=== PATIENT | female | born 2005 | race Caucasian/White ===

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

== ENCOUNTER → 2024-07-25 | Outpatient (CLI) | payer OTHER ==
[2024-07-25 13:27] VITALS: BP 110/71; PULSE 80; RESP 16; TEMP 98.7
--- NOTE | 2024-07-25 20:52 | P.SLEEP ---
History of Present Illness H&P Date: 07/25/24 This is a 19-year-old female patient was referred to sleep center due to concerns of sleep apnea. The patient has loud snoring and she is suffering from excessive daytime sleepiness. Her current [place] score is at 2. She has been noted to stop breathing at night and occasionally, she wakes up choking and gasping for air. Her sleep is fragmented. She goes to bed between 10 PM and 2 AM and she gets out of bed between 6 and 8 AM in the morning. 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 She has attended [employer]. The patient has been diagnosed having PCOS and she has gained weight over the years and her current body mass index is 36.9. She also has history of acid reflux and chronic bronchial asthma for which she has been maintained on Symbicort. No grinding of the teeth. No sleepwalking or sleep talking. No nocturia. No restlessness in her lower extremities. No palpitations. No heartburn. She does feel tired at all times. No history of any motor vehicle accidents because of feeling drowsy or sleepy. She has lost her parents at the young age. Her father of a cardiac complication at the age of 37 and mother of complication of pulmonary disease at the age of 45. She is currently living alone. She does yoga and walks for exercise several days a week. No history of smoking. No alcoholism. No substance abuse. Review of Systems Constitutional: Reports daytime sleepiness, Reports fatigue, Reports weight gain Eyes: denies as per HPI, denies blurred vision, denies bulging eye, denies decreased vision, denies diplopia, denies discharge, denies dry eye, denies irritation, denies itching, denies pain, denies photophobia, denies loss of peripheral vision, denies loss of vision, denies tunnel vision/blind spots Ears: deny: decreased hearing, ear discharge, earache, tinnitus Ears, nose, mouth and throat: Reports as per HPI Breasts: absent: as per HPI, change in shape, gynecomastia, masses, nipple discharge, pain, skin changes, swelling Cardiovascular: Reports as per HPI Respiratory: Reports snoring Gastrointestinal: Reports as per HPI Genitourinary: Reports as per HPI Menstruation: Reports as per HPI, Reports cycle variable Musculoskeletal: Reports as per HPI Musculoskeletal: absent: ankle pain, ankle stiffness, ankle swelling, as per HPI, elbow pain, elbow stiffness, elbow swelling, foot pain, foot stiffness, foot swelling, hand pain, hand stiffness, hand swelling, hip pain, hip stiffness, hip swelling, knee pain, knee stiffness, knee swelling, shoulder pain, shoulder stiffness, shoulder swelling, wrist pain, wrist stiffness, wrist swelling Integumentary: Reports as per HPI Neurological: Reports as per HPI Psychiatric: Reports as per HPI Endocrine: Reports fatigue Hematologic/Lymphatic: Reports as per HPI Allergic/Immunologic: Reports as per HPI Past Medical History Past Medical History: Asthma, GERD/Reflux Additional Past Medical History / Comment(s): PCOS History of Any Multi-Drug Resistant Organisms: None Reported Past Surgical History: No Surgical Hx Reported Past Anesthesia/Blood Transfusion Reactions: No Reported Reaction Past Psychological History: No Psychological Hx Reported Smoking Status: Never smoker Past Alcohol Use History: None Reported Past Drug Use History: None Reported - Past Family History Mother Family Medical History: Asthma, Cancer, Pneumonia, Rheumatoid Arthritis (RA) Additional Family Medical History / Comment(s): Lundg problems, breast Cancer, in sleep, Insomnia, mental illness Father Family Medical History: Asthma, Coronary Artery Disease (CAD), Hyperlipidemia, Sleep Apnea/CPAP/BIPAP Additional Family Medical History / Comment(s): Mental Illness Medications and Allergies Home Medications Medication Instructions Recorded Confirmed Type Budesonide/Formoterol Fumarate See Rx Instructions .ROUTE .COMPLEX 07/25/24 07/25/24 History [Symbicort 80-4.5 Mcg Inhaler] Cholecalciferol (Vitamin D3) 50,000 units PO WEEKLY 07/25/24 07/25/24 History [Vitamin D3 (125 MCG = 5,000 IU)] Omeprazole 20 mg PO DAILY 07/25/24 07/25/24 History Ondansetron [Zofran] 4 mg PO Q12HR PRN 07/25/24 07/25/24 History norgestimate-ethinyl estradioL See Rx Instructions .ROUTE .COMPLEX 07/25/24 07/25/24 History [Sprintec 28 Day Tablet] Allergies Allergy/AdvReac Type Severity Reaction Status Date / Time No Known Allergies Allergy Verified 12/26/14 19:53 Physical Exam Vitals: Vital Signs Temp Pulse Resp BP Pulse Ox 07/25/24 13:27 98.7 F 80 16 110/71 98 Intake and Output 07/25/24 07/25/24 07/25/24 06:59 14:59 22:59 Other: Weight 96.162 kg The patient appeared well nourished and normally developed. Vital signs as documented. Obesity with a body mass index of 36.9 Head exam is unremarkable. No scleral icterus or corneal arcus noted. Neck is without jugular venous distension, thyromegaly, or carotid bruits. Carotid upstrokes are brisk bilaterally. Lungs are clear to auscultation and percussion. Cardiac exam reveals the PMI to be normally sized and situated. Rhythm is regular. First and second heart sounds normal. No murmurs, rubs or gallops. Abdominal exam reveals normal bowel sounds, no masses, no organomegaly and no aortic enlargement. Extremities are nonedematous and both femoral and pedal pulses are normal. Examination of the skin revealed no evidence of significant rashes, suspicious appearing nevi or other concerning lesions. Neurologically, the patient is awake and alert and the patient does not have any focal neurological deficit. Cranial nerves are essentially intact. Assessment and Plan Plan: Chronic fatigue and sleepiness with an [place] score of 2 Loud snoring with sleep fragmentation, suspect obstructive sleep apnea Obesity with a BMI of 37.0 Polycystic ovary syndrome Chronic bronchial asthma which is currently inactive and stable Acid reflux Plan Will proceed with a screening polysomnography Encourage weight loss Implement good sleep hygiene principles Maintain regular sleep schedule Will continue to follow and will make further recommendations based on results of sleep study. Time with Patient: Greater than 30 Sleep Note - Sleep Data ESS Total: 2 - Sleep Note Sleep Note: Temperature: 98.7 F Pulse Rate: 80 Respiratory Rate: 16 Blood Pressure: 110/71 SpO2: 98 Height: 5 ft 3.5 in Weight: 96.162 kg BMI: Neck Circumference: 15.2
== END ==
LOC: 3 N SLEEP 13:03
PROVIDERS: ATTEND Internal Medicine
DX: E66.9 Obesity, unspecified (principal); E28.2 Polycystic ovarian syndrome; J45.909 Unspecified asthma, uncomplicated; K21.9 Gastro-esophageal reflux disease without esophagitis; Z68.37 Body mass index [BMI] 37.0-37.9, adult
CPT/HCPCS: 99211

== ENCOUNTER 2024-08-21 19:58 | Outpatient (CLI) | payer OTHER ==
--- NOTE | 2024-09-03 19:58 | P.PCN ---
Date of Procedure: 08/21/24 Operative Findings: Polysomnography report Date of service is 09/03/2024 History This is a 19-year-old female patient was referred to sleep center due to concerns of sleep apnea. The patient has loud snoring and she is suffering from excessive daytime sleepiness. Her current Killdeer score is at 2. She has been noted to stop breathing at night and occasionally, she wakes up choking and gasping for air. Her sleep is fragmented. She goes to bed between 10 PM and 2 AM and she gets out of bed between 6 and 8 AM in the morning. 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 She has attended [employer]. The patient has been diagnosed having PCOS and she has gained weight over the years and her current body mass index is 36.9. She also has history of acid reflux and chronic bronchial asthma for which she has been maintained on Symbicort. No grinding of the teeth. No sleepwalking or sleep talking. No nocturia. No restlessness in her lower extremities. No palpitations. No heartburn. She does feel tired at all times. No history of any motor vehicle accidents because of feeling drowsy or sleepy. She has lost her parents at the young age. Her father of a cardiac complication at the age of 37 and mother of complication of pulmonary disease at the age of 45. She is currently living alone. She does yoga and walks for exercise several days a week. No history of smoking. No alcoholism. No substance abuse. Physical findings Weight is 212 pounds, body mass index is 37 Technical description The patient was studied using a standard complex polysomnography protocol that included recording of the Lead II EKG, Central, occipital and frontal EEG, right and left outer canthus EOG, submental EMG, right and left anterior tibialis EMG, respiratory airflow by thermocouple and or pressure/flow transducer, respiratory efforts by abdominal and thoracic PVDF belts, oxygen saturation by cable oximetry. Position by observation synchronized the PSG. Equipment used: [employer]. Sleep architecture The total recording duration was 393.0 minutes. The total sleep time was 350 minutes. Overall sleep efficiency was 89.1%. Latency to sleep onset was 31 minutes. The sleep architecture was characterized by 6.7% stage I, 65.6% stage II, 15.6% stage III, 12.1% REM sleep. Respiratory summary Sleep study showed a total of 12 obstructive respiratory events of which 11 were obstructive hypopnea and 1 was obstructive apnea. No central apneas. No mixed apneas. The resulting AHI was calculated to be a 2.1. Oxygenation analysis No significant nocturnal oxygen saturation encountered throughout the study. The patient was able to maintain a pulse ox above 90% throughout the sleep study. Arousal summary The patient had a total of 31 arousals throughout the sleep study with an index of 5.3. The respiratory arousal index was 1.7. Limb movement summary There was a total of 16 periodic limb movement activity with a PLM index of 2.7 Cardiac summary The average heart rate was 70. Minimum heart rate was 43 and a maximum heart rate of 111. Rhythm was sinus Assessment Primary snoring. No evidence of any sleep breathing disorder. Patient had an AHI of 2.1. No significant nocturnal oxygen desaturations. Adequate sleep architecture Adequate sleep efficiency No significant sleep fragmentation and arousal index was low Chronic fatigue and sleepiness with an Killdeer score of 2 Obesity with a BMI of 37.0 Polycystic ovary syndrome Chronic bronchial asthma which is currently inactive and stable Acid reflux Plan No evidence of any significant sleep breathing disorder as mentioned. The patient will be reassured on the results of the sleep study. Encourage weight loss Implement good sleep hygiene principles Maintain regular sleep schedule optimize comorbidities and refer the patient back to the primary care.
== END 2024-08-22 05:35 | disposition home or self-care (01) ==
LOC: 3 N SLEEP 19:58
PROVIDERS: ATTEND Internal Medicine Critical Care Medicine
DX: G47.33 Obstructive sleep apnea (adult) (pediatric) (principal); E28.2 Polycystic ovarian syndrome; J45.909 Unspecified asthma, uncomplicated; K21.9 Gastro-esophageal reflux disease without esophagitis; E66.9 Obesity, unspecified; Z68.37 Body mass index [BMI] 37.0-37.9, adult
CPT/HCPCS: 95810